=== PATIENT | female | born 1980 | race Two or more races ===

== ENCOUNTER 2019-01-04 22:10 | Emergency (ER) | payer OTHER ==
[2019-01-04 22:23] VITALS: BP 122/83
[2019-01-04] MEDS ORDERED: CEPHALEXIN 500 MG CAP PO ONE (22:25)
--- NOTE | 2019-01-04 22:26 | EDPHY ---
H & P Stated Complaint: Poss UTI Time Seen by Provider: 01/04/19 22:17 HPI/ROS: CHIEF COMPLAINT: Dysuria, hematuria HISTORY OF PRESENT ILLNESS: The patient is a 38-year-old female who has been complaining of dysuria and frequency for the last several days. Yesterday she went to her primary care doctor and they performed urinalysis but told her it did not look infected. They fernando blood work which she brought with her. Her WBC was 6. Her urine culture was pending. Today she developed hematuria as well. She initially came here but decided not to check in and went to the urgent care instead. At the urgent care they told her that they did not have time to do urinalysis so she returned here to the emergency department. She is complaining of suprapubic discomfort, frequency and hematuria. No back or flank pain. No fever. No nausea vomiting or GI symptoms. No abdominal tenderness. She denies risk of . No vaginal bleeding. She denies risk of PID. No diarrhea. Severity: Moderate Modifying factors: None REVIEW OF SYSTEMS: Constitutional: denies: chills, fever, recent illness, recent injury EENTM: denies: blurred vision, double vision, nose congestion Respiratory: denies: cough, shortness of breath Cardiac: denies: chest pain, irregular heart rate, lightheadedness, palpitations Gastrointestinal/Abdominal: denies: abdominal pain, diarrhea, nausea, vomiting, blood streaked stools Genitourinary: See HPI Musculoskeletal: denies: joint pain, muscle pain Skin: denies: lesions, rash, jaundice, bruising Neurological: denies: headache, numbness, paresthesia, tingling, dizziness, weakness Hematologic/Lymphatic: denies: blood clots, easy bleeding, easy bruising Immunologic/allergic: denies: HIV/AIDS, transplant 10 systems reviewed and negative except as noted EXAM: GENERAL: Well-appearing, well-nourished and in no acute distress. HEAD: Atraumatic, normocephalic. EYES: Pupils equal round and reactive to light, extraocular movements intact, sclera anicteric, conjunctiva are normal. ENT: TMs normal, nares patent, oropharynx clear without exudates. Moist mucous membranes. NECK: Normal range of motion, supple without lymphadenopathy or JVD. LUNGS: Breath sounds clear to auscultation bilaterally and equal. No wheezes rales or rhonchi. HEART: Regular rate and rhythm without murmurs, rubs or gallops. ABDOMEN: Slight suprapubic tenderness, no right lower quadrant or left lower quadrant tenderness, normoactive bowel sounds. No guarding, no rebound. No masses appreciated. BACK: No CVA tenderness, no spinal tenderness, step-offs or deformities EXTREMITIES: Normal range of motion, no pitting or edema. No clubbing or cyanosis. NEUROLOGICAL: Cranial nerves II through XII grossly intact. Normal speech, normal gait. 5/5 strength, normal movement in all extremities, normal sensation , normal reflexes PSYCH: Normal mood, normal affect. SKIN: Warm, dry, normal turgor, no visible rashes or lesions. Source: Patient Exam Limitations: No limitations - Personal History LMP (Females 10-55): 8-14 Days Ago Current Tetanus/Diphtheria Vaccine: Yes Current Tetanus Diphtheria and Acellular Pertussis (TDAP): Yes - Medical/Surgical History Hx Asthma: No Hx Chronic Respiratory Disease: No Hx Diabetes: No Hx Cardiac Disease: No Hx Renal Disease: No Hx Cirrhosis: No Hx Alcoholism: No Hx HIV/AIDS: No Hx Splenectomy or Spleen Trauma: No Other PMH: UTI. [facility]CP [facility] - Family History Significant Family History: No pertinent family hx - Social History Smoking Status: Never smoked Alcohol Use: None Constitutional: Initial Vital Signs Temperature (C) 36.7 C 01/04/19 22:20 Heart Rate 61 01/04/19 22:20 Respiratory Rate 16 01/04/19 22:20 Blood Pressure 122/83 H 01/04/19 22:20 O2 Sat (%) 100 01/04/19 22:20 O2 Delivery Mode Room Air Allergies/Adverse Reactions: No Known Allergies Allergy (Verified 01/25/16 11:46) Home Medications: Medication Instructions Recorded Control Pill 07/24/15 Ethinyl Estradiol/Drospirenone 1 each PO DAILY #28 tablet 01/25/16 [Dulce 28 Tablet] Cephalexin [Keflex] 500 mg PO TID #21 cap 01/04/19 Fluconazole [Diflucan (*)] 150 mg PO ONCE #1 tab 01/04/19 Medical Decision Making ED Course/Re-evaluation: Patient has symptoms and exam consistent with a cystitis. Urinalysis appears grossly contaminated and dark with leukesterase. No symptoms consistent with pyelonephritis. Urine is negative. Will start her on Keflex and give her dose of Pyridium. She also tends to get yeast infections when she is treated for previous UTIs so will give her prescription for Diflucan. She is happy with this plan and declines any further workup or testing at this time. Urine cultures will be sent. Differential Diagnosis: Partial list of the Differential diagnosis considered include but were not limited to; urinary tract infection, pyelonephritis and although unlikely based on the history and physical exam, I also considered sepsis, , vaginal bleed, PID. I discussed these differential diagnoses and the plan with the patient as well as the usual and expected course. The patient understands that the diagnosis is provisional and that in medicine we are not always correct and that further workup is often warranted. Usual and customary warnings were given. All of the patient's questions were answered. The patient was instructed to return to the emergency department should the symptoms at all worsen or return, otherwise to followup with the physician as we discussed. - Data Points Medications Given: Discontinued Medications Cephalexin HCl (Keflex) 500 mg PO EDNOW ONE PRN Reason: Protocol Stop: 01/04/19 22:26 Last Admin: 01/04/19 22:32 Dose: 500 mg Phenazopyridine HCl (Pyridium) 200 mg PO EDNOW ONE Stop: 01/04/19 22:28 Last Admin: 01/04/19 22:32 Dose: 200 mg Point of Care Test Results: Urine Collection Date 01/04/19 Collection Time 22:15 HCG Results Negative Urine Dip Collection Date 01/04/19 Collection Time 22:15 Specific [place] (1.002-1.030) 1.005 PH (5.0-7.5) 6.0 Leukocytes (Negative) 3+ Nitrites (Negative) Negative Protein (Negative) 3+ Glucose (Negative) Negative Ketones (Negative) Negative Urobilnogen (0.2-1.0 EU) 0.2 Bilirubin (Negative) Negative Blood (Negative) 3+ Departure - Departure Disposition: Home, Routine, Self-Care Clinical Impression: Urinary tract infection Qualifiers: Urinary tract infection type: acute cystitis Hematuria presence: with hematuria Qualified Code(s): N30.01 - Acute cystitis with hematuria Condition: Fair Instructions: Urinary Tract Infection in Women (ED) Referrals: [facility],. [Clinic] - As per Instructions Prescriptions: Cephalexin [Keflex] 500 mg PO TID #21 cap Fluconazole [Diflucan (*)] 150 mg PO ONCE #1 tab
[2019-01-04] MEDS ORDERED: PHENAZOPYRIDINE HCL 200 MG TAB PO ONE (22:27)
== END 2019-01-04 22:52 | disposition home or self-care (01) ==
LOC: CED 22:10
DX: N30.01 Acute cystitis with hematuria (principal); Z87.440 Personal history of urinary (tract) infections
CPT/HCPCS: 81025-ER; 99284-ER